=== PATIENT | female | born 1995 | race Caucasian/White ===

== ENCOUNTER 2018-08-11 16:54 | Emergency (ER) | payer SELFPAY ==
[~2018-08-11] VITALS: Ht 167.6 cm; Wt 95.3 kg
[2018-08-11 17:05] VITALS: BP 115/76
[2018-08-11] MEDS ORDERED: ALBU2.5V8 INH (17:28)
--- NOTE | 2018-08-11 17:28 | PHYS DOC ---
Past Medical History Past Medical History: No Pertinent History Alcohol Use: Rarely Drug Use: None Adult General Chief Complaint Chief Complaint: COUGH HPI HPI 22 y/o female presents to ER via POV for c/o cough x 2wks. Pt denies fever, productive cough, chest pain, or other cold/flu like symptoms. She reports her boyfriend had similar cough. She denies any recent travel or shortness of air. Pt denies smoking history. Review of Systems Review of Systems Constitutional: Denies fever or chills [] Eyes: Denies change in visual acuity, redness, or eye pain [] HENT: Denies nasal congestion or sore throat [] Respiratory: Denies shortness of breath. Reports nonproductive cough Cardiovascular: Denies chest tightness/CP GI: Denies abdominal pain, nausea, vomiting, bloody stools or diarrhea [] : Denies urinary sxs Musculoskeletal: Denies back pain or joint pain [] Integument: Denies rash or skin lesions [] Neurologic: Denies headache, focal weakness or sensory changes [] All other systems were reviewed and found to be within normal limits, except as documented in this note. Physical Exam Physical Exam Constitutional: Well developed, well nourished, no acute distress, non-toxic appearance. [] HENT: Normocephalic, atraumatic, bilateral ears normal, oropharynx moist, nose normal. [] Eyes: Pupils equal, conjunctiva normal, no discharge. [] Neck: Normal range of motion, no tenderness, supple, no stridor. [] Cardiovascular: Heart rate regular rhythm- 80-90s during exam, no murmur [] Lungs & Thorax: Bilateral breath sounds clear to auscultation- good air movement through all lung finley. Resp. equal/nonlabored. No coughing during exam. O2 sat 98% RA during exam Abdomen: Bowel sounds normal, soft, no tenderness Skin: Warm, dry, no erythema, no rash. [] Back: No tenderness, full ROM Extremities: No tenderness, no cyanosis, no clubbing, ROM intact, no edema. [] Neurologic: Alert and oriented X 3, normal motor function, normal sensory function, no focal deficits noted. [] Psychologic: Affect normal, judgement normal, mood normal. [] Current Patient Data Vital Signs Vital Signs Date Time Temp Pulse Resp B/P (MAP) Pulse Ox O2 Delivery O2 Flow Rate FiO2 08/11/18 17:05 98.5 110 20 115/76 (89) 96 98.5 EKG EKG [] Radiology/Procedures Radiology/Procedures [] Course & Med Decision Making Course & Med Decision Making Patient was evaluated in the ER for complaints of 2 week history of cough. Patient's exam was unremarkable with good clear air movement throughout all lung finley. Patient had stable vital signs and was nontoxic in appearance. Discussion had with patient regarding cough and symptomatic treatment with [id number] products such as Delsym and increase fluids for hydration. Patient had no coughing episodes during exam or at time of discharge discussion. Education provided on signs and symptoms to return to ER. Discharge instructions were discussed. Patient to follow-up with primary care physician if symptoms persist or with any concerns. Dragon Disclaimer Dragon Disclaimer This electronic medical record was generated, in whole or in part, using a voice recognition dictation system. Departure Departure Impression: Primary Impression: Cough Disposition: 01 HOME, SELF-CARE Condition: STABLE Patient Instructions: Cough, Adult Additional Instructions: Drink plenty of fluids for hydration. [id number] cough suppressant such as Delsym as directed on container. If symptoms persist or worsen follow-up with your primary care physician for reevaluation and further care. Scripts Albuterol Sulfate (PROAIR HFA INHALER) 8.5 Gm Hfa.aer.ad 1 PUFF INH PRN Q6HRS PRN for COUGH, #1 INHALER 0 Refills Prov: DEANA PAIGE APRN 08/11/18 DEANA PAIGE APRN Aug 11, 2018 17:28
== END 2018-08-11 17:35 | disposition home or self-care (01) ==
LOC: ER 16:54
DX: R05 Cough (principal)
CPT/HCPCS: 99283